=== PATIENT | male | born 1965 | race Hispanic/Latino ===

== ENCOUNTER → 2021-03-25 | Outpatient (CLI) | payer OTHER | END | disposition home or self-care (01) | LOC: OIH 14:56 | PROVIDERS: ATTEND Family Medicine | DX: Z13.6 Encounter for screening for cardiovascular disorders (principal); I25.10 Atherosclerotic heart disease of native coronary artery without angina pectoris; I51.5 Myocardial degeneration | CPT/HCPCS: 75571 ==

== ENCOUNTER → 2024-09-03 | Outpatient (CLI) | payer BC, OTHER ==
[~2024-09-03] MED LIST: IOHEXOL-350 75 ML VIAL IV ONE
--- NOTE | 2024-09-03 09:34 | HMCIMG ---
Exam Type: CT ABDOMEN/PELVIS W/CONTRAST Clinical Information: Abnormal findings on diagnostic imaging of liver and biliary tract Comparison: None Contrast: 100 cc's Isovue 370 IV, no complications or adverse reactions CT Dose Index (CTDI): 31.60 mGy Dose Length Product (DLP): 1740.80 total mGy-cm Findings: The liver is abnormal. There is a complex mass with some peripheral enhancement and internal foci of necrosis right and left liver lobe measuring 17 x 11 cm at the least. The spleen is enlarged but shows no lesions. No evidence of nephro or ureterolithiasis is found. No hydronephrosis or ureteral dilatation is seen. The lung bases are clear. The stomach is unremarkable. It shows no wall thickening. No gross ulceration is seen. It is not overly distended. There are no surrounding inflammatory changes. No wall lesions are identified to suggest cancer. The pancreas shows normal anatomy. It is not fatty replaced. It shows no lesions. The pancreatic duct is not dilated. The gallbladder is unremarkable. It shows no cholelithiasis. The gallbladder wall is normal in thickness. There is no pericholecystic fluid. The is no acute or chronic inflammation noted. The adrenal glands are unremarkable. There is no enlargement. No lesions are noted. The appendix is unremarkable. It shows no evidence of inflammation. No appendicolith is seen. The small bowel is unremarkable. There is no evidence of dilatation to suggest obstruction. No evidence of adynamic ileus is seen. There is no small bowel wall thickening to suggest enteritis. The colon is unremarkable. The urinary bladder is unremarkable. There is no wall thickening to suggest tumor or inflammation. There are no intraluminal calculi. There are no diverticula. There is no evidence of chronic bladder outlet obstruction. There is no evidence of urinary bladder distention to suggest urinary retention. The other pelvic structures are unremarkable. The bony and vascular structures are unremarkable for the patient's age. IMPRESSION: Large liver lesion straddling the left and right lobes. Neoplasm is the working diagnosis. This study was performed using dose reduction techniques to include automated exposure control and/or adjustment of the mA and/or kV according to patient size.
== END | disposition home or self-care (01) ==
LOC: RAH 08:00
PROVIDERS: ATTEND Internal Medicine Gastroenterology
DX: K72.90 Hepatic failure, unspecified without coma (principal); D49.9 Neoplasm of unspecified behavior of unspecified site; K76.9 Liver disease, unspecified; R93.2 Abnormal findings on diagnostic imaging of liver and biliary tract; R16.0 Hepatomegaly, not elsewhere classified
CPT/HCPCS: 74177; Q9967

== ENCOUNTER 2024-09-20 08:16 | Day surgery (SDC) | payer BC ==
[2024-09-20] VITALS (10 sets, daily range): BP systolic 147–166; BP diastolic 73–90; PULSE 70–81; RESP 13–21; TEMP 96.9–97.5
[2024-09-20] MEDS: 0.9%NACL 1000ML 1,000 ML IV SCH (09:21)
[2024-09-20] MEDS ORDERED: MIDAZOLAM HCL 1 MG/ML 2ML VIAL ONE (11:51)
[2024-09-20] MEDS ORDERED: FENTanyl CITRate PF 50 MCG/1 ML 2ML VIAL ONE (11:51)
--- NOTE | 2024-09-20 12:45 | NUR ---
U/S GD LIVER MASS BX PROCEDURE PERFORMED BY DR Ree RAMACHANDRAN. PUNCTURE SITE RUQ AND PATIENT TOLERATED PROCEDURE WELL. SPECIMEN X3 COLLECTED AND SENT TO LAB. END OF PROCEDURE AT 1230. BIOPSY NEEDLE REMOVED AND DRESSING APPLIED. NO BLEEDING NOTED. REPORT GIVEN TO Nilo DUBOSE RN AND PATIENT TRANSPORTED TO DAY PATIENT RM 7. AAO X3 WITH NO C/O PAIN.
--- NOTE | 2024-09-20 12:50 | NUR ---
dressing: dressing to ruq dry/intact with no active bleeding present. no redness/swelling noted to surrounding area.
--- NOTE | 2024-09-20 14:37 | NUR ---
REPORT: REPORT GIVEN TO ELIO STONER RN.
[2024-09-30] MEDS ORDERED: GLIP2.5T23 PO (11:25)
[2024-09-30] MEDS ORDERED: METF-444 PO (11:25)
[2024-09-30] MEDS ORDERED: OMEP40CA21 PO (11:25)
[2024-09-30] MEDS ORDERED: ATOR40TA69 PO (11:25)
[2024-09-30] MEDS ORDERED: MULT-1203 PO (11:25)
[2024-09-30] MEDS ORDERED: EMPA25TA PO (11:25)
[2024-09-30] MEDS ORDERED: LOSA25TA41 PO (11:25)
--- NOTE | 2024-10-16 21:00 | CCATH ---
INDICATION: History of right hepatic lesion. TECHNIQUE: Informed consent was obtained. Discussed the risks, benefits, and alternatives to treatment. The right upper quadrant was prepped and draped in a sterile fashion. 1% lidocaine was used for anesthesia. Using ultrasound guidance, the needle was advanced to the heterogeneous area in the right hepatic lobe and three 18-gauge core biopsies were obtained. Gelfoam was injected along the biopsy tract. Sterile dressings were applied. No immediate complication. The patient tolerated the procedure well. FINDINGS: Initial ultrasound demonstrated a heterogeneous lesion in the liver. Completion ultrasound demonstrated no evidence of hematoma post biopsy. IMPRESSION: Uneventful biopsy of the heterogeneous mass in the liver using ultrasound guidance. Specimen sent for analysis. The patient tolerated the procedure well. TID: [id number] RECEIPT: [id number]
== END 2024-09-20 15:30 | disposition home or self-care (01) ==
LOC: RAH 08:16 → DAH 08:16 → EDSTATUS 10:00 → RAH 15:30
PROVIDERS: ATTEND Internal Medicine Gastroenterology
DX: R93.2 Abnormal findings on diagnostic imaging of liver and biliary tract (principal); K74.60 Unspecified cirrhosis of liver; D50.9 Iron deficiency anemia, unspecified; K21.9 Gastro-esophageal reflux disease without esophagitis; R76.0 Raised antibody titer; I10 Essential (primary) hypertension; E78.5 Hyperlipidemia, unspecified; E11.9 Type 2 diabetes mellitus without complications; Z79.899 Other long term (current) drug therapy; Z79.84 Long term (current) use of oral hypoglycemic drugs; Z86.0100 Personal history of colon polyps, unspecified; Z87.898 Personal history of other specified conditions; Z88.0 Allergy status to penicillin
CPT/HCPCS: 82948 ×2; 88307; 88342; 47000; 76942; 88341; A4223 ×3; J3010; J7030; J2250; C2615; A4215; A4222; A4221; A4663; A4216; A4606; 99152; 99153; G0500

== ENCOUNTER 2024-10-02 06:13 | Day surgery (SDC) | payer BC ==
[2024-10-02] VITALS (11 sets, daily range): BP systolic 143–202; BP diastolic 77–100; PULSE 75–82; RESP 15–17; TEMP 96.7–97.8
[~2024-10-02] VITALS: Ht 162.6 cm; Wt 65.8 kg
[~2024-10-02 06:13] MED LIST changes: +ATOR40TA69 PO; +EMPA25TA PO; +GLIP2.5T23 PO; -IOHEXOL-350 75 ML VIAL IV ONE; +LOSA25TA41 PO; +METF-444 PO; +MULT-1203 PO; +OMEP40CA21 PO
[2024-10-02] MEDS: 0.9%NACL 1000ML 1,000 ML IV ONE (07:43)
[2024-10-02] MEDS ORDERED: proPOFol 10 MG/ML 20ML VIAL IV ONE (08:59)
[2024-10-02] MEDS: LAbetaLOL 20MG SYG IV ONE (09:38)
== END 2024-10-02 10:25 | disposition home or self-care (01) ==
LOC: DAH 06:13 → ENDO 06:13
PROVIDERS: ATTEND Internal Medicine
DX: K76.6 Portal hypertension (principal); I85.10 Secondary esophageal varices without bleeding; K29.50 Unspecified chronic gastritis without bleeding; K31.89 Other diseases of stomach and duodenum; E78.5 Hyperlipidemia, unspecified; E11.9 Type 2 diabetes mellitus without complications; K21.9 Gastro-esophageal reflux disease without esophagitis; D50.9 Iron deficiency anemia, unspecified; B96.81 Helicobacter pylori [H. pylori] as the cause of diseases classified elsewhere; Z88.0 Allergy status to penicillin; Z79.899 Other long term (current) drug therapy
CPT/HCPCS: 43244; 82948 ×2; 43239; J7030; J2704; A4215; A4223; A4222; A4221; A4663; A4606; J3490